=== PATIENT | female | born 1970 | race African-American/Black ===

== ENCOUNTER 2018-03-22 08:59 | Emergency (ER) | payer BC ==
[~2018-03-22] VITALS: Ht 165.1 cm; Wt 91.0 kg
[2018-03-22 09:13] VITALS: BP 156/98; PULSE 56; RESP 20; TEMP 98.8; O2SAT 98
[2018-03-22] MEDS ORDERED: HYDR-755 PO (09:39)
[2018-03-22] MEDS ORDERED: LISI10TA3 PO (09:39)
--- NOTE | 2018-03-22 09:49 | PD ---
HPI Chief Complaint: Wound/Suture/Staple Re-Check Time Seen by Provider: 09:40 Travel History International Travel<30 days: No Contact w/Intl Traveler<30days: No Traveled to known affect area: No History of Present Illness HPI 47-year-old female presents to the emergency department for evaluation staple removal. Patient states she had sutures placed to her forehead 1 week ago at [facility] after she hit her head on a nightstand. She denies any symptoms or complaints at this time. She denies any drainage. No erythema. No headaches. Mild severity. PFSH Past Medical History Anxiety: Yes Cardiovascular Problems: Yes Diminished Hearing: No Hypertension: Yes Tetanus Vaccination: < 5 Years Influenza Vaccination: No ?: Not LMP: 03/11/18 Past Surgical History Section: Yes Other Surgery: Yes (pylonidal abscess) Social History Alcohol Use: Yes (2-3x a week) Tobacco Use: Yes (1 pack per week) Substance Use: No Allergies-Medications (Allergen,Severity, Reaction): Coded Allergies: codeine (Verified Allergy, Severe, Hives, 03/22/18) morphine (Verified Allergy, Severe, Hives, 03/22/18) Reported Meds & Prescriptions Reported Meds & Active Scripts Active Reported Hydroxyzine HCl Unknown Strength Tab Unknown Dose PO TID PRN Lisinopril 10 Mg Tab 10 Mg PO DAILY Review of Systems Except as stated in HPI: all other systems reviewed are Neg Physical Exam Narrative GENERAL: Well-nourished, well-developed female patient, afebrile. SKIN: Focused skin assessment warm/dry. Patient has healing laceration to the mid forehead without erythema or drainage. Sutures are in place. HEAD: Normocephalic. EYES: No scleral icterus. No injection or drainage. CARDIOVASCULAR: Regular rate and rhythm without murmurs, gallops, or rubs. RESPIRATORY: Breath sounds equal bilaterally. No accessory muscle use. Lung sounds are clear to auscultation. MUSCULOSKELETAL: No cyanosis, or edema. Data Data Last Documented VS Vital Signs Date Time Temp Pulse Resp B/P (MAP) Pulse Ox O2 Delivery O2 Flow Rate FiO2 03/22/18 09:13 98.8 56 20 156/98 (117) 98 Orders Orders Ed Discharge Order (03/22/18 09:49) [facility] Medical Decision Making Medical Screen Exam Complete: Yes Emergency Medical Condition: Yes Medical Record Reviewed: Yes Differential Diagnosis Cellulitis versus suture removal versus dehiscence Narrative Course 47-year-old female presents to the emergency department for suture removal. Laceration is appearing well without any evidence of complication. 6 sutures are removed without difficulty. The patient was discharged in stable condition with instructions, including return instructions and follow up instructions. Diagnosis Primary Impression: Visit for suture removal Referrals: Primary Care Physician as needed Patient Instructions: General Instructions, Stitches Removal (ED) Additional Instructions: Clean gently with soap and water. Follow-up with a primary care physician. Return to the emergency department for any acute worsening of symptoms. Med/Other Pt SpecificInfo: No Change to Meds Disposition: 01 DISCHARGE HOME Condition: Stable Sharon Manzanares March 22, 2018 09:49
== END 2018-03-22 10:14 | disposition home or self-care (01) ==
LOC: NEPK 08:59
DX: S01.81XD Laceration without foreign body of other part of head, subsequent encounter (principal); W22.03XD Walked into furniture, subsequent encounter
CPT/HCPCS: 99281

== ENCOUNTER 2018-04-11 18:22 | Emergency (ER) | payer BC ==
[~2018-04-11] VITALS: Ht 165.1 cm; Wt 92.0 kg
[~2018-04-11 18:22] MED LIST: HYDR-755 PO; LISI10TA3 PO
[2018-04-11 18:25] VITALS: BP 113/71; PULSE 103; RESP 16; TEMP 98.2; O2SAT 96
[2018-04-11 18:33] VITALS: BP 131/65; PULSE 76; RESP 20; TEMP 98.5; O2SAT 100; O2SAT 76
--- NOTE | 2018-04-11 19:46 | PD ---
HPI Chief Complaint: Oral / Dental Pain or Problem Time Seen by Provider: 19:40 Travel History International Travel<30 days: No Contact w/Intl Traveler<30days: No Traveled to known affect area: No History of Present Illness HPI 47-year-old female presents to the emergency department with complaint of left lower dental pain 3 days. Denies dental trauma. Denies fever, vomiting. Denies sore throat, difficulty swallowing, unusual drooling. Says she has been feeling nauseated today from the pain. Has tried taking ibuprofen with no relief of symptoms. Rates pain 10/10. Pain is constant. Worse when she breathes in air. No known relieving factors. Allergies to codeine and morphine sulfate. No primary care provider. History of hypertension and asthma. Has no other medical complaints. No other modifying factors or associated signs and symptoms. PFSH Past Medical History Anxiety: Yes Cardiovascular Problems: Yes Diminished Hearing: No Hypertension: Yes Immunizations Current: Yes Tetanus Vaccination: < 5 Years Influenza Vaccination: No ?: Not Past Surgical History Section: Yes Other Surgery: Yes (pylonidal abscess) Social History Alcohol Use: Yes (2-3x a week) Tobacco Use: Yes (1 pack per week) Substance Use: No Allergies-Medications (Allergen,Severity, Reaction): Coded Allergies: codeine (Verified Allergy, Severe, Hives, 04/11/18) morphine (Verified Allergy, Severe, Hives, 04/11/18) Reported Meds & Prescriptions Reported Meds & Active Scripts Active Magic Mouthwash Pediatric/Adult Liq (Lidocaine/Diphenhydr/Alum/Mg/Simeth) 60 Ml Susp 5 Ml SWISH-SWAL ACHS PRN Each 5mL contains: Diphenydramine 4.5mg, Viscous Lidocaine 2% 10mg, Maalox Advanced Regular Strength 2.7ml Peridex Liq (Chlorhexidine Gluconate (Mouth) Liq) 0.12% Soln 15 Ml SWISH-SPIT BID 10 Days Ibuprofen 800 Mg Tab 800 Mg PO Q6HR PRN Amoxicillin 500 Mg Cap 500 Mg PO BID 10 Days Reported Hydroxyzine HCl Unknown Strength Tab Unknown Dose PO TID PRN Lisinopril 10 Mg Tab 10 Mg PO DAILY Review of Systems Except as stated in HPI: all other systems reviewed are Neg Physical Exam Narrative GENERAL: Well-nourished, well-developed black patient, in no acute distress; afebrile, nontoxic-appearing SKIN: Warm and dry. HEAD: Atraumatic. Normocephalic. No facial edema, erythema, tenderness on palpation. No lymphadenopathy. EYES: Pupils equal and round. No scleral icterus. No injection or drainage. ENT: Mucosa pink and moist. No erythema or exudates. No uvular edema. No uvular , palatal, or tonsillar deviation. Airway patent. EARS: Bilateral pinnae and external canals appear within normal limits. Bilateral tympanic membranes without erythema, dullness or perforation. MOUTH: Mucous membranes moist, no lesions, tongue and gums appear normal. Left lower second molar with large complex dental cavity and decay; with tenderness on palpation. Surrounding gingiva is without erythema, edema, drainage. No obvious abscess noted. NECK: Trachea midline. No lymphadenopathy. CARDIOVASCULAR: Regular rate. RESPIRATORY: No accessory muscle use. GASTROINTESTINAL: Rounded. MUSCULOSKELETAL: No obvious deformities. No clubbing. No cyanosis. No edema. NEUROLOGICAL: Awake and alert. Oriented 3. No obvious cranial nerve deficits. Motor grossly within normal limits. Normal speech. PSYCHIATRIC: Appropriate mood and affect; insight and judgment normal. Data Data Last Documented VS Vital Signs Date Time Temp Pulse Resp B/P (MAP) Pulse Ox O2 Delivery O2 Flow Rate FiO2 04/11/18 18:33 98.5 76 20 131/65 (87) 100 Orders Orders Ed Discharge Order (04/11/18 20:23) Ketorolac Inj (Toradol Inj) (04/11/18 20:30) MDM Medical Decision Making Medical Screen Exam Complete: Yes Emergency Medical Condition: Yes Medical Record Reviewed: Yes Differential Diagnosis Dental pain, dental cavity, infected dental cavity, gingivitis, dental abscess Narrative Course 47-year-old female with dental pain and complex dental cavity of the left lower second molar. No facial edema or erythema. Patient is afebrile and nontoxic- appearing. Denies fever, vomiting. Toradol administered in the ER. Patient provided emergency dental information sheet for follow-up. Instructed patient to follow-up with dentist. Amoxicillin, Tee's mouth rinse, Magic mouthwash , ibuprofen prescribed for home. Instructed patient to follow up with primary care provider. Patient verbalizes understanding and agreement with treatment plan. Patient is medically cleared and stable for discharge. Discussed reasons to return to the emergency department. Patient agrees with treatment plan. The patients vital signs are stable and the patient is stable for outpatient follow-up and treatment. Patient discharged home, stable and in no acute distress. Diagnosis Primary Impression: Pain, dental Additional Impression: Complex dental cavity Referrals: [facility] Dentist Primary Care Physician Patient Instructions: Dental Abscess (ED), Dental Caries (ED), General Instructions, Toothache (ED) Additional Instructions: Complete full course of antibiotics Ibuprofen or Tylenol as directed and as needed to reduce pain and inflammation Use Magic mouthwash rinse as directed and as needed to decrease pain Use Peridex as directed for oral hygiene Warm or cool compresses to the affected area Follow-up with dentist Follow-up with primary care provider Return to emergency department immediately with worsening of symptoms Med/Other Pt SpecificInfo: Prescription(s) given Scripts Nsxxsrcifzhmwak-Isgytskki-Giu-Alum-Simeth Liq (Magic Mouthwash Pediatric/Adult Liq) 60 Ml Susp 5 ML SWISH-SWAL ACHS Y for PAIN SCALE 1 TO 10, #60 ML 0 Refills Each 5mL contains: Diphenydramine 4.5mg, Viscous Lidocaine 2% 10mg, Maalox Advanced Regular Strength 2.7ml Prov: Amy Hermosillo 04/11/18 Chlorhexidine Gluconate (Mouth) Liq (Peridex Liq) 0.12% Soln 15 ML SWISH-SPIT BID for 10 Days, #300 ML 0 Refills Prov: Amy Hermosillo 04/11/18 Ibuprofen (Ibuprofen) 800 Mg Tab 800 MG PO Q6HR Y for PAIN, #20 TAB 0 Refills Prov: Amy Hermosillo 04/11/18 Amoxicillin (Amoxicillin) 500 Mg Cap 500 MG PO BID for Infection for 10 Days, #20 CAP 0 Refills Prov: Amy Hermosillo 04/11/18 Disposition: 01 DISCHARGE HOME Condition: Stable Amy Hermosillo Apr 11, 2018 19:46
[2018-04-11] MEDS ORDERED: PERI0.126 SWISH-SPIT (20:25)
[2018-04-11] MEDS ORDERED: IBUP1TAB7 PO (20:25)
[2018-04-11] MEDS ORDERED: AMOX500C PO (20:25)
[2018-04-11] MEDS ORDERED: MAGICPED SWISH-SWAL (20:25)
[2018-04-11] MEDS ORDERED: KETOROLAC TROMETHAMINE 60 MG/2 ML (IM) VIAL IM ONE (20:30)
== END 2018-04-11 20:54 | disposition home or self-care (01) ==
LOC: NEPK 18:22
DX: K08.89 Other specified disorders of teeth and supporting structures (principal); K02.9 Dental caries, unspecified; R11.0 Nausea; I10 Essential (primary) hypertension; Z72.0 Tobacco use
CPT/HCPCS: 96372; 99283; J1885

== ENCOUNTER 2018-07-23 12:13 | Observation (INO) ==
[2018-07-23] MEDS ORDERED: LORazepam 1 MG Tablet PO ONE (13:01)
--- NOTE | 2018-07-23 13:07 | ED ---
HPI General Chief complaint: Anxiety Stated complaint: Medical Time Seen by Provider: 07/23/18 12:49 History of Present Illness HPI narrative: The patient was seen and examined in the presence of the nurse. 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 She has anxiety issues. She also complains of central chest tightness and heaviness. Duration is one day. Severity is moderate. She denies history of ischemic cardiac disease. She reports a negative stress test 2-3 years ago. She is not short of breath or having fever. No alleviating factors. No exacerbating factors. She took a dose of hydroxyzine today which did not help Related Data Home Medications Medication Instructions Recorded Confirmed aspirin [Aspir-Low] 81 mg PO DAILY 07/09/18 07/23/18 fluticasone [Flonase Allergy 1 spray INTRANASAL DAILY 07/09/18 07/23/18 Relief] lisinopril 10 mg PO DAILY 07/09/18 07/23/18 Previous Rx's Medication Instructions Recorded hydroxyzine pamoate [Vistaril] 25 mg PO Q8H PRN #10 cap 07/09/18 Allergies Allergy/AdvReac Type Severity Reaction Status Date / Time codeine Allergy Severe Hives Verified 07/09/18 19:58 morphine Allergy Severe Hives Verified 07/09/18 19:58 Review of Systems ROS: all other systems reviewed are negative PMFSH Medical History Medical History Anxiety (Acute) Asthma (Acute) Hypertension (Acute) Surgical History Surgical History H/O: (Acute) Social History Social History Substance History: No History of Abuse Smoking Status: Current every day smoker Tobacco Type: Cigarettes How Often Do You Have a Drink Containing Alcohol: 4 or more times a week Recent Travel in [facility] within the Last 8 Weeks: No Recent Out of Country Travel within the Last 8 Weeks: No Immunization History Tetanus Immunization: <5 Years Tetanus Immunization Year if Known: 2017 Hx Influenza Vaccine This Season: No Exam Narrative Exam Narrative: GENERAL: Well-nourished, well-developed patient in no apparent distress. SKIN: Focused skin assessment reveals no rash and nodules. Skin is Warm and dry. HEAD: Atraumatic. Normocephalic. EYES: Pupils equal and round. No scleral icterus. No injection or drainage. ENT: No nasal bleeding or discharge. Mucous membranes pink and moist. NECK: Trachea midline. No JVD. CARDIOVASCULAR: Regular rate and rhythm. No murmur appreciated. RESPIRATORY: No accessory muscle use. Clear to auscultation. Breath sounds equal bilaterally. GASTROINTESTINAL: Abdomen soft, non-tender, nondistended. Hepatic and splenic margins not palpable. MUSCULOSKELETAL: No obvious deformities. No clubbing. No cyanosis. No edema. NEUROLOGICAL: Awake and alert. No obvious cranial nerve deficits. Motor grossly within normal limits. Normal speech. PSYCHIATRIC: Anxious mood and affect; insight and judgment normal. Course Initial Documented Vital Signs Temperature 97.7 F 07/23/18 12:29 Pulse Rate 84 07/23/18 12:29 Respiratory Rate 18 07/23/18 12:29 Blood Pressure 201/109 H 07/23/18 12:29 Pulse Oximetry 100 07/23/18 12:29 Last Documented Vital Signs Temperature 97.7 F 07/23/18 12:29 Pulse Rate 84 07/23/18 12:29 Respiratory Rate 18 07/23/18 12:29 Blood Pressure 201/109 H 07/23/18 12:29 Pulse Oximetry 100 07/23/18 13:12 Medical Decision Making MDM Narrative Medical decision making narrative: I gave her a dose of aspirin and clonidine and 2 mg Ativan. Workup ordered. She is having chest pressure and tightness with multiple risk factors including hypertension and smoking. Patient will be a 23-hour observation on telemetry in the chest pain center in order to rule out cardiac cause of her symptoms. Initial studies look normal. Medical Screen Exam Complete: Yes Emergency Medical Condition: Yes Differential Diagnosis Differential Diagnosis: Differential diagnosis includes [place], angina, pericarditis , pleurisy, GERD, anxiety. Medical Records Medical records reviewed: Yes I reviewed the patient's medical records. Lab Data Lab results reviewed: Yes I reviewed the patient's lab results. Lab results narrative: Cardiac enzymes and General labs are normal Result diagrams: 07/23/18 13:15 07/23/18 13:15 Lab Results 07/23/18 07/23/18 07/23/18 Range/Units 13:15 13:15 13:15 WBC 9.5 (4.0-11.0) th/mm3 RBC 4.02 (4.00-5.30) mil/mm3 Hgb 13.9 (11.6-15.3) gm/dL Hct 39.0 (35.0-46.0) % MCV 97.1 (80.0-100.0) fL MCH 34.6 H (27.0-34.0) pg MCHC 35.6 (32.0-36.0) % RDW 13.7 (11.6-17.2) % Plt Count 210 (150-450) th/mm3 MPV 10.5 (7.0-11.0) fL Neut % (Auto) 64.8 (16.0-70.0) % Lymph % (Auto) 24.4 (9.0-44.0) % [place] % (Auto) 6.6 (0.0-8.0) % Eos % (Auto) 3.4 (0.0-4.0) % Baso % (Auto) 0.8 (0.0-2.0) % Neut # (Auto) 6.2 (1.8-7.7) th/mm3 Lymph # (Auto) 2.3 (1.0-4.8) th/mm3 [place] # (Auto) 0.6 (0.0-0.9) th/mm3 Eos # (Auto) 0.3 (0.0-0.4) th/mm3 Baso # (Auto) 0.1 (0.0-0.2) th/mm3 WBC Differential . Differential Comment Auto diff final Sodium 136 (136-145) meq/L Potassium 3.6 (3.5-5.1) meq/L Chloride 103 (98-107) meq/L Carbon Dioxide 21.8 (21.0-32.0) meq/L Anion Gap 11 (5-15) meq/L BUN 17 (7-18) mg/dL Creatinine 0.93 (0.50-1.00) mg/dL Estimated GFR 78 L (>89) mL/min Random Glucose 81 (74-106) mg/dL Calcium 9.1 (8.5-10.1) mg/dL Total Creatine Kinase 75 (26-192) U/L Troponin I Less than 0.02 L (0.02-0.05) ng/mL Imaging Data Attestation: I personally reviewed and interpreted this imaging study as follows : My impression: Chest x-ray is normal Radiologist's impression: Chest X-Ray 07/23/18 13:01 CONCLUSION: Negative examination. ECG Data EKG Prior to Arrival: No Attestation: I personally reviewed and interpreted this ECG as follows: Prior ECG tracings: not available for review Interpretation: EKG shows sinus rhythm with a rate of 87. NE interval is [address] elevations are noted. Discharge Plan Discharge Disposition Patient Disposition: 30 Still Patient Discharge Details Diagnosis: Chest pain in adult Physicians Team ED Provider: Bruce Meléndez Primary Care Provider: Primary Care Yoly Pena Rxs /Orders / Referrals /Forms Prescriptions: No Action aspirin [Aspir-Low] 81 mg Tablet,Delayed Release (Dr/Ec) 81 mg PO DAILY RF: 0 lisinopril 10 mg Tablet 10 mg PO DAILY RF: 0 fluticasone [Flonase Allergy Relief] 50 mcg/actuation [place],Suspension 1 spray INTRANASAL DAILY RF: 0 hydroxyzine pamoate [Vistaril] 25 mg capsule 25 mg PO Q8H PRN (Reason: anxiety) Qty: 10 RF: 0 Discharge Interventions Interventions: Vital Signs Last Done: 07/23/18 12:29 Status ED Status: With Doctor
[2018-07-23 13:29] LABS: Baso # (Auto) 0.1 th/mm3 (0.0-0.2); Baso % (Auto) 0.8 % (0.0-2.0); Eos # (Auto) 0.3 th/mm3 (0.0-0.4); Eos % (Auto) 3.4 % (0.0-4.0); Hemoglobin 13.9 gm/dL (11.6-15.3); Lymph # (Auto) 2.3 th/mm3 (1.0-4.8); Lymph % (Auto) 24.4 % (9.0-44.0); Mean Corpuscular HGB Conc 35.6 % (32.0-36.0); Mean Corpuscular Hemoglobin 34.6 pg (27.0-34.0); Mean Corpuscular Volume 97.1 fL (80.0-100.0); Mean Platelet Volume 10.5 fL (7.0-11.0); Mono # (Auto) 0.6 th/mm3 (0.0-0.9); Mono % (Auto) 6.6 % (0.0-8.0); Neut # (Auto) 6.2 th/mm3 (1.8-7.7); Neut % (Auto) 64.8 % (16.0-70.0); Platelet Count 210 th/mm3 (150-450); Red Blood Count 4.02 mil/mm3 (4.00-5.30); Red Cell Distribution Width 13.7 % (11.6-17.2); White Blood Count 9.5 th/mm3 (4.0-11.0)
[2018-07-23 13:45] LABS: Anion Gap 11 meq/L (5-15); Blood Urea Nitrogen 17 mg/dL (7-18); Calcium 9.1 mg/dL (8.5-10.1); Carbon Dioxide 21.8 meq/L (21.0-32.0); Chloride 103 meq/L (98-107); Glomerular Filtration Rate 78 mL/min (>89); Glucose,Random 81 mg/dL (74-106); Potassium 3.6 meq/L (3.5-5.1); Sodium 136 meq/L (136-145)
--- NOTE | 2018-07-23 14:01 | XR ---
EXAM DATE: 07/23/2018 1:58 PM EDT AGE/SEX: 47 years / Female INDICATIONS: Chest pain; anxiety. CLINICAL DATA: This is the patient's initial encounter. Patient reports that signs and symptoms have been present for 1 day and indicates a pain score of 1/10. MEDICAL/SURGICAL HISTORY: None. None. COMPARISON: No prior exams available for comparison. FINDINGS: A single AP view of the chest demonstrates the lungs to be symmetrically aerated without evidence of mass, infiltrate or effusion. The cardiomediastinal contours are unremarkable. Osseous structures a re intact. CONCLUSION: Negative examination. Electronically signed by: Jamie Thomson MD 07/23/2018 2:00 PM EDT
[2018-07-23] MEDS ORDERED: Acetaminophen 500 MG Tablet PO PRN (16:08)
[2018-07-23] MEDS ORDERED: ALPRAZolam 0.25 MG Tablet PO PRN (16:08)
--- NOTE | 2018-07-23 16:15 | P.HPCA ---
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 Rated as a 10 out of 10. States it lasted about an hour and a half. She was short of breath but denies nausea or diaphoresis. She started chewing a piece of gum and takes water and believes that that helped and her symptoms resolved and have not recurred. Denies history of heart disease. States she has had a heart catheterization about 6 or 7 years ago and that she was told it was okay. She had a stress test about 4 years ago and believes that was okay as well. Currently denies chest discomfort. Admits to being a very anxious person but has no medication for anxiety. Denies . History of hypertension and anxiety. Denies diabetes, hyperlipidemia, and known CAD. Patient smokes about 1/3-1/2 pack a series daily for about 25 years. Denies illicit drugs. Rarely has alcohol. Denies family history of CAD. - Diagnosis (1) Chest pain (2) Hypertension (3) Tobacco abuse (4) Anxiety Review of Systems General: Patient denies fevers, chills, and recent travel. HEENT: Patient denies headache, sore throat, difficulty swallowing. Cardiovascular: Has the chest discomfort as mentioned above. Denies sensation of heart beating rapidly or irregularly. No syncope. Denies diaphoresis. Respiratory: She was short of breath. Denies inspirational chest discomfort. Denies coughing wheezing or hemoptysis. GI: Patient denies nausea, vomiting, diarrhea, abdominal pain, bloody stools. Musculoskeletal: Patient denies joint pain or edema. Denies calf pain or edema. Neurovascular: Patient denies numbness, tingling, weakness in extremities. Denies headache. Endocrine: Denies polyuria and polydipsia. Hematologic: Denies easy bruising. Skin: Denies rash or itching. PMFSH - History History Provided By: Patient - Medical History Medical History: Medical History (Last Updated 07/23/18 @ 12:55 by Nacho Naranjo RN) Anxiety Asthma Hypertension - Surgical History Surgical History: Surgical History (Last Reviewed 07/09/18 @ 21:07 by Cb Grove MD) H/O: - Tobacco History Tobacco Use In Past 30 Days: Yes Smoking Status: Current every day smoker Tobacco Type: Cigarettes - Alcohol History How Often Do You Have a Drink Containing Alcohol: 4 or more times a week - Substance Use History Substance History: No History of Abuse - Travel History Recent Travel in the [place] Within the Last 8 Weeks: No Recent Travel Out of the Country Within the Last 8 Weeks: No - Immunization History Tetanus Immunization: <5 Years Tetanus Immunization Year if Known: 2018 Hx Influenza Vaccine This Season: No Medications and Allergies Active Medications: Active Medications Acetaminophen (Tylenol) 500 mg PO Q4H PRN PRN Reason: HEADACHE Alprazolam (Xanax) 0.25 mg PO Q8H PRN PRN Reason: ANXIETY Aspirin (Aspirin) 325 mg PO DAILY MAHIN Ondansetron HCl (Zofran Inj) 4 mg IV.PUSH Q6H PRN PRN Reason: NAUSEA Pantoprazole Sodium (Protonix) 40 mg PO DAILY MAHIN Sodium Chloride (Ns Flush) 2 ml IV.FLUSH UNSCH PRN PRN Reason: FLUSH AFTER USING IV ACCESS Sodium Chloride (Ns Flush) 2 ml IV.FLUSH BID MAHIN Sodium Chloride (Ns Flush) 2 ml IV.FLUSH PRN PRN PRN Reason: FLUSH AFTER USING IV ACCESS Allergies Allergy/AdvReac Type Severity Reaction Status Date / Time codeine Allergy Severe Hives Verified 07/09/18 19:58 morphine Allergy Severe Hives Verified 07/09/18 19:58 Home Medications Medication Instructions Recorded Confirmed Type aspirin [Aspir-Low] 81 mg PO DAILY 07/09/18 07/23/18 History fluticasone [Flonase Allergy 1 spray INTRANASAL DAILY 07/09/18 07/23/18 History Relief] lisinopril 10 mg PO DAILY 07/09/18 07/23/18 History Exam Vital signs: Vital Signs 07/23/18 12:29 07/23/18 13:01 07/23/18 13:12 Temperature 97.7 F Pulse Rate 84 75 Respiratory Rate 18 20 Blood Pressure 201/109 H 190/108 H Pulse Oximetry 100 99 100 07/23/18 14:00 07/23/18 15:00 Temperature Pulse Rate 72 68 Respiratory Rate 18 16 Blood Pressure 142/72 H 124/59 L Pulse Oximetry 99 99 Intake & Output 07/22/18 07/23/18 07/23/18 18:59 06:59 18:59 Weight 90.718 kg Narrative: GENERAL: This is a well-nourished, well-developed patient, in no apparent distress. Patient speaks in clear complete sentences. Patient is pleasant. HEENT: Head is atraumatic and normocephalic. Neck is supple without lymphadenopathy and trachea is midline. No JVD or carotid bruits. CARDIOVASCULAR: Regular rate and rhythm without murmurs, gallops, or rubs. RESPIRATORY: Clear to auscultation. Breath sounds equal bilaterally. No wheezes , rales, or rhonchi. Chest wall is nontender. No use of accessory muscles. GASTROINTESTINAL: Abdomen is nontender, nondistended. Abdomen soft. No obvious pulsatile mass or bruit. No CVA tenderness. Strong femoral pulses bilaterally. Normal bowel sounds in all quadrants. MUSCULOSKELETAL: Patient is moving upper and lower extremities freely. No calf tenderness or edema, no Homans sign. Strong pulses in upper and lower extremities. NEUROLOGICAL: Patient is alert and oriented. Cranial nerves 2-12 are grossly intact. No focal deficits and speech is clear. SKIN: No rash and turgor is normal. Results 07/23/18 13:15 07/23/18 13:15 Cardiac Enzymes 07/23/18 Range/Units 13:15 Troponin I Less than 0.02 L (0.02-0.05) ng/mL CBC 07/23/18 Range/Units 13:15 WBC 9.5 (4.0-11.0) th/mm3 RBC 4.02 (4.00-5.30) mil/mm3 Hgb 13.9 (11.6-15.3) gm/dL Hct 39.0 (35.0-46.0) % Plt Count 210 (150-450) th/mm3 Neut # (Auto) 6.2 (1.8-7.7) th/mm3 Lymph # (Auto) 2.3 (1.0-4.8) th/mm3 [place] # (Auto) 0.6 (0.0-0.9) th/mm3 Eos # (Auto) 0.3 (0.0-0.4) th/mm3 Baso # (Auto) 0.1 (0.0-0.2) th/mm3 Comprehensive Metabolic Panel 07/23/18 Range/Units 13:15 Sodium 136 (136-145) meq/L Potassium 3.6 (3.5-5.1) meq/L Chloride 103 (98-107) meq/L Carbon Dioxide 21.8 (21.0-32.0) meq/L BUN 17 (7-18) mg/dL Creatinine 0.93 (0.50-1.00) mg/dL Calcium 9.1 (8.5-10.1) mg/dL Intake and Output 07/23/18 07/23/18 07/23/18 06:59 14:59 22:59 Other: Weight 90.718 kg Patient Weight 07/24/18 06:59 Weight 90.718 kg - Imaging and Cardiology Imaging: Impressions Chest X-Ray 07/23/18 13:01 CONCLUSION: Negative examination. EKG interpretations - EKG EKG shows: sinus rhythm (Initial EKG is sinus rhythm rate of [address] segment depressions or elevations.) Caprini VTE Risk Assessment Caprini VTE Risk Assessment: No/Low Risk (score <= 1) Caprini Risk Assessment Model: Point Value = 1 Point Value = 2 Point Value = 3 Point Value = 5 Age 41-60 Minor surgery BMI > 25 kg/m2 Swollen legs Varicose veins or History of unexplained or recurrent spontaneous Oral contraceptives or hormone replacement Sepsis (< 1 month) Serious lung disease, including pneumonia (< 1 month) Abnormal pulmonary function Acute myocardial infarction Congestive heart failure (< 1 month) History of inflammatory bowel disease Medical patient at bed rest Age 61-74 Arthroscopic surgery Major open surgery (> 45 min) Laparoscopic surgery (> 45 min) Malignancy Confined to bed (> 72 hours) Immobilizing plaster cast Central venous access Age >= 75 History of VTE Family history of VTE Factor V Leiden Prothrombin [id number] Lupus anticoagulant Anticardiolipin antibodies Elevated serum homocysteine Heparin-induced thrombocytopenia Other congenital or acquired thrombophilia Stroke (< 1 month) Elective arthroplasty Hip, pelvis, or leg fracture Acute spinal cord injury (< 1 month) Prophylaxis Regimen: Total Risk Factor Score Risk Level Prophylaxis Regimen 0-1 Low Early ambulation 2 Moderate Order ONE of the following: *Sequential Compression Device (SCD) *Heparin 5000 units SQ BID 3-4 Higher Order ONE of the following medications: *Heparin 5000 units SQ TID *Enoxaparin/Lovenox 40 mg SQ daily (WT < 150 kg, CrCl > 30 mL/min) *Enoxaparin/Lovenox 30 mg SQ daily (WT < 150 kg, CrCl > 10-29 mL/min) *Enoxaparin/Lovenox 30 mg SQ BID (WT < 150 kg, CrCl > 30 mL/min) AND/OR *Sequential Compression Device (SCD) 5 or more Highest Order ONE of the following medications: *Heparin 5000 units SQ TID (Preferred with Epidurals) *Enoxaparin/Lovenox 40 mg SQ daily (WT < 150 kg, CrCl > 30 mL/min) *Enoxaparin/Lovenox 30 mg SQ daily (WT < 150 kg, CrCl > 10-29 mL/min) *Enoxaparin/Lovenox 30 mg SQ BID (WT < 150 kg, CrCl > 30 mL/min) AND *Sequential Compression Device (SCD) Assessment and Plan - Assessment (1) Chest pain Code(s): R07.9 - Chest pain, unspecified Status: Acute (2) Hypertension Code(s): I10 - Essential (primary) hypertension Status: Acute (3) Tobacco abuse Code(s): Z72.0 - Tobacco use Status: Acute (4) Anxiety Code(s): F41.9 - Anxiety disorder, unspecified Status: Acute - Plan * Chest pain: Patient will continue to have serial cardiac enzymes and EKGs for ruling out purposes. She will be seen by Dr. Brower of cardiology in the chest pain center in the morning. Patient likely to have a stress test if ruling out. Patient will be discharged home if stress test is nonischemic with instructions to follow-up with PCP. Return to ED for interval issues. * Hypertension: Patient states she takes lisinopril 10 mg in the evening. She was hypertensive upon arrival to the ED however her blood pressure normalized while I was in the room after patient was given Ativan. Will have as needed Catapres. Continue to monitor. * Tobacco abuse: Patient counseled on importance of smoking cessation. * Anxiety: Patient will need follow-up with local physician to help manage her anxiety. Patient is stable at this time. She is agreeable to this plan.
[2018-07-23 16:58] LABS: Creatine Kinase 66 U/L (26-192)
[2018-07-23 20:41] LABS: Creatine Kinase 62 U/L (26-192)
[2018-07-23] MEDS ORDERED: Lisinopril 10 MG Tablet PO SCH (21:00)
[2018-07-24 00:44] VITALS: O2SAT 100
--- NOTE | 2018-07-24 08:30 | ECG ---
Date Performed: 07/23/2018 Time Performed: 19:15:53 PTAGE: 47 years EKG: SINUS BRADYCARDIA WITH MARKED SINUS ARRHYTHMIA BORDERLINE ECG Since PREVIOUS TRACING , no significant change noted PREVIOUS TRACIN07/23/2018 17.08 DOCTOR: Tracie Brower Interpretating Date/Time 07/24/2018 08:29:13
--- NOTE | 2018-07-24 08:31 | ECG ---
Date Performed: 07/23/2018 Time Performed: 17:08:09 PTAGE: 47 years EKG: SINUS BRADYCARDIA WITH SINUS ARRHYTHMIA BORDERLINE ECG Since PREVIOUS TRACING , no significant change noted PREVIOUS TRACIN07/23/2018 13.03 DOCTOR: Tracie Brower Interpretating Date/Time 07/24/2018 08:29:28
--- NOTE | 2018-07-24 08:31 | ECG ---
Date Performed: 07/23/2018 Time Performed: 13:03:22 PTAGE: 47 years EKG: Sinus rhythm NORMAL ECG NO PREVIOUS TRACING DOCTOR: Tracie Brower Interpretating Date/Time 07/24/2018 08:29:48
[2018-07-24 08:50] VITALS: RESP 18
[2018-07-24] MEDS ORDERED: Aspirin 325 MG Tablet PO SCH (09:00)
[2018-07-24 12:20] VITALS: BP 142/80; PULSE 57; TEMP 98.8
[2018-07-24] MEDS ORDERED: Regadenoson Inj 0.4 MG/5 ML Syringe IV.PUSH ONE (13:44)
--- NOTE | 2018-07-24 14:43 | NM ---
EXAM DATE: 07/24/2018 1:07 PM EDT AGE/SEX: 47 years / Female INDICATIONS:Angina. . Central chest pain. CLINICAL DATA: This is the patient's initial encounter. Patient reports that signs and symptoms have been present for 1 day and indicates a pain score of 4/10. MEDICAL/SURGICAL HISTORY: Hypertension. section. COMPARISON: No prior exams available for comparison. DOSE: 8.8 mCi [id number] Sestamibi at rest 258.4 mCi [id number] at stress 0.4 mg Lexiscan STRESS SYMPTOMS: Dyspnea and heart racing. EJECTION FRACTION: 66 % TECHNIQUE: The patient underwent pharmacologic stress with infusion of prescribed dose. Continuous ECG tracing was monitored during stress. Gated SPECT imaging was performed after stress and conventi onal SPECT imaging was performed at rest. The examination was performed on a SPECT/CT scanner, both attenuation and non-corrected datasets were reviewed. FINDINGS: Distribution: The maximum perfused segment at stress is in the lateral wall. Perfusion Study: The pattern of perfusion at stress is within normal limits. Gated Study: There are intact wall motion and wall thickening without hypokinetic or dyskinetic segm ents. The ejection fraction is calculated at 66%. RISK CATEGORY: Low (<1% Annual Motality Rate) CONCLUSION: 1. Unremarkable myocardial perfusion examination. Electronically signed by: Keegan Brewster MD 07/24/2018 2:41 PM EDT
--- NOTE | 2018-07-24 16:54 | TR ---
Date Performed: 07/24/2018 Time Performed: 09:25:09 DOCTOR: Tracie Brower DRUG LIST: CLINICAL HISTORY: REASON FOR TEST: REASON FOR ENDING: OBSERVATION: CONCLUSION: NINOSKA PROTOCOL. NO CP. TEST STOPPED AFTER REACHING GOAL HR SECONDARY TO SOB AND LEG FATIGUE.Maximum GD=164 % Max HR Achieved=87.0% Maximum XE=726/90 Total Exercise Time=6:41 Abnormal u psloped ST segments concerning for ischemia. COMMENTS: Abnormal ST sgment shifts concerning for ischemia.
--- NOTE | 2018-07-24 17:06 | TR ---
Date Performed: 07/24/2018 Time Performed: 13:38:25 DOCTOR: Tracie Brower DRUG LIST: CLINICAL HISTORY: REASON FOR TEST: REASON FOR ENDING: OBSERVATION: CONCLUSION: Lexiscan stress test was performed under standard four minute protocol. Radionuclid e was injected one minute prior to ending the test. No electrocardiographic abormalities were present to suggest ischemia. Nuclear imaging and interpretation are pending. COMMENTS: no ischemia
== END 2018-07-24 15:44 | disposition home or self-care (01) ==
LOC: NEPD 12:13 → NEDA 12:13 → NEPGCP 16:37
PROVIDERS: ADMIT Internal Medicine Cardiovascular Disease; ATTEND Internal Medicine Cardiovascular Disease